=== PATIENT | female | born 1985 | race African-American/Black ===

== ENCOUNTER 2019-12-16 22:23 | Emergency (ER) | payer MEDICAID, SELFPAY ==
--- NOTE | ~2019-12-16 | XR_ITS ---
EXAMINATION: XR chest 2V DATE: 12/16/2019 23:18 INDICATION: Cough TECHNIQUE: PA and lateral views of the chest are obtained. COMPARISON: None available FINDINGS: The lungs are free of acute opacities. There is no pleural effusion or pneumothorax. The ca rdiomediastinal silhouette is normal. The visualized bones and soft tissues are unremarkable. IMPRESSION: 1. No acute cardiopulmonary abnormality. Reviewed, dictated and finalized at location A.
[2019-12-16 22:27] VITALS: BP 137/89; PULSE 96; RESP 20; TEMP 37.2; O2SAT 100
--- NOTE | 2019-12-16 22:52 | ED.GENADULT ---
HPI - General Adult General Chief complaint: Unspecified Stated complaint: choked on roll Time Seen by Provider: 12/16/19 22:52 Source: patient Mode of arrival: ambulatory Limitations: no limitations History of Present Illness HPI narrative: A 34 y/o female presents to the ED with c/o a possible FB in her throat. Pt states she was eating a biscuit this evening and accidentally inhaled a piece of it while she was in the middle of yelling. Pt had the Heimlich maneuver performed on her and a piece of the biscuit came out. Pt was able to breath okay but started to cough up phlegm afterwards. Pt states that she still feels irritation in the back of her throat. She denies chest pressure, SOB, drug use, and smoking. Related Data Allergies Allergy/AdvReac Type Severity Reaction Status Date / Time No Known Allergies Allergy Verified 12/16/19 22:37 Review of Systems Review of Systems: All systems reviewed & are unremarkable except as noted in HPI and below ENT: Comments: Reports: throat irritation Cardiovascular: Comments: Denies: chest pressure Respiratory: Respiratory: Reports cough (with phlegm) and Denies dyspnea PMFSH Surgical History Surgical History (Updated 12/16/19 @ 23:09 by Bridgette Vides) H/O inguinal hernia repair Social History Social History (Updated 12/16/19 @ 23:09 by Bridgette Vides) Smoking status: Never smoker Alcohol intake: current Alcohol use details: occasional Substance use: never Gender identity (if verbalized by the patient): Female 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 HEAD: Normocephalic, atraumatic. ENT: Mucous membranes moist. Normal posterior oropharynx without edema of the uvula or tonsils. CHEST: Clear to auscultation. No respiratory distress. HEART: Regular rate and rhythm. Normal peripheral pulses. EXTREMITIES: Normal range of motion. No edema. SKIN: Warm, dry, no rash. NEURO: Alert and oriented x3. Course Course Emergency Course: Sx improved with viscous lidocaine. D/c Vital Signs Vital signs: Vital Signs Temperature 99 F 12/16/19 22:27 Pulse Rate 96 12/16/19 22:27 Respiratory Rate 20 12/16/19 22:27 Blood Pressure 137/89 12/16/19 22:27 Pulse Oximetry 100 12/16/19 22:27 Temperature 99 F 12/16/19 22:27 Pulse Rate 82 12/16/19 23:40 Respiratory Rate 12 12/16/19 23:40 Blood Pressure 145/114 H 12/16/19 23:40 Pulse Oximetry 100 12/16/19 23:40 Medical Decision Making Vital Signs Vital Signs: Vital Signs Temperature 99 F 12/16/19 22:27 Pulse Rate 96 12/16/19 22:27 Respiratory Rate 20 12/16/19 22:27 Blood Pressure 137/89 12/16/19 22:27 Pulse Oximetry 100 12/16/19 22:27 Temperature 99 F 12/16/19 22:27 Pulse Rate 82 12/16/19 23:40 Respiratory Rate 12 12/16/19 23:40 Blood Pressure 145/114 H 12/16/19 23:40 Pulse Oximetry 100 12/16/19 23:40 Imaging Data Attestation: I personally reviewed and interpreted this imaging study as follows: Radiologist's impression: Chest X-ray: IMPRESSION: 1. No acute cardiopulmonary abnormality. Discharge Plan Discharge Clinical Impression: Pain in throat Patient Disposition: Home, Self-Care Condition: Stable Instructions: Foreign Body Ingestion (ED) Additional Instructions: Return to the ER if you cannot breathe, you cannot swallow, you develop fever over 100.4 ?F, you have additional concerns. Follow-up/Referrals: UNKNOWN,DOCTOR [Primary Care Provider] - 1 Week
--- NOTE | 2019-12-16 23:02 | PC.NURSE ---
assumed care of pt at this time. report from ARNOLD Iverson
[2019-12-16] MEDS: LIDOCAINE HCL 2% VISC SOLN 15 ML UDC PO (23:37)
[2019-12-16 23:40] VITALS: BP 145/114; PULSE 82; RESP 12; O2SAT 100
[2019-12-17 00:10] VITALS: BP 140/98; PULSE 88; RESP 19; O2SAT 97
== END 2019-12-17 00:10 | disposition home or self-care (01) ==
PROVIDERS: Emergency Provider Emergency Medicine
DX: J02.9 Acute pharyngitis, unspecified (principal)
CPT/HCPCS: 71046; 99283

== ENCOUNTER 2023-02-03 19:19 | Emergency (ER) | payer OTHER, SELFPAY ==
--- NOTE | ~2023-02-03 | CT_ITS ---
EXAMINATION: CT abdomen pelvis w con DATE: 02/03/2023 21:24 INDICATION: Abdominal pain. TECHNIQUE: Computed tomography (CT) of the abdomen and pelvis was performed with 100 mL Omnipaque 350 intravenous contrast. Automated exposure control and iterative reconstruction technique were employe d. The dose-length product was 682.88 mGy-cm. COMPARISON: None. FINDINGS: The visualized portions of the lung bases demonstrate mild atelectasis. No pleural effusion . The heart size is normal. No pericardial effusion. The liver, gallbladder, spleen, pancreas, adrena l glands, and left kidney are normal. There is a 7 mm cyst in right kidney. 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 There are 3 uterine fibroids measur ing up to 9.3 cm. There are no dilated loops of bowel. The appendix is normal. There are no pathologi remi enlarged lymph nodes. There is no free intraperitoneal fluid. The bones are unremarkable. IMPRESSION: 1. Uterine fibroids. Reviewed, dictated and finalized at location A. IMPRESSION: 1. Uterine fibroids.
[2023-02-03 19:28] VITALS: BP 139/75; PULSE 115; RESP 16; TEMP 37.3; O2SAT 98
[2023-02-03 19:44] LABS: Basophils Absolute Auto 0.1 K/mm3 (0.0-0.1); Basophils Percent Auto 0.7 % (0.2-1.2); Eosinophils Absolute Auto 0.3 K/mm3 (0-0.3); Eosinophils Percent Auto 2.3 % (0-4.4); Hematocrit 36.6 % (37.0-47.0); Hemoglobin 11.9 g/dL (12.0-15.0); Immature Granulocyte Absolute 0.07 K/mm3 (0.00-0.031); Immature Granulocyte Percent A 0.5 % (0-0.5); Lymphocytes Absolute Auto 2.87 K/mm3 (0.9-3.2); Lymphocytes Percent Auto 21.3 % (18.3-44.2); Mean Corpuscular HGB Conc 32.5 g/dl (32-36); Mean Corpuscular Hemoglobin 26.5 pg (26-34); Mean Corpuscular Volume 81.5 fl (80-100); Monocytes Absolute Auto 1.8 K/mm3 (0.1-0.6); Monocytes Percent Auto 13.1 % (2.6-8.5); Neutrophils Absolute Auto 8.4 K/mm3 (1.3-6.7); Neutrophils Percent Auto 62.1 % (45.5-73.1); Platelet Count Result 690 k/mm3 (150-375); Red Blood Count 4.49 M/mm3 (4.2-5.4); Red Cell Distribution Width 15.1 % (11.5-14.5); White Blood Count 13.5 K/mm3 (4.5-10.0)
[2023-02-03 19:55] LABS: Alanine Aminotransferase 16 U/L (6-35); Alkaline Phosphatase 71 U/L (38-126); Anion Gap 7 mmol/L (8-16); Aspartate Amino Transferase 21 U/L (14-36); Bilirubin,Total 0.4 mg/dL (0.2-1.3); Blood Urea Nitrogen 7 mg/dL (7-17); Calcium 9.2 mg/dL (8.4-10.2); Carbon Dioxide 29 mmol/L (22-30); Chloride 102 mmol/L (98-107); Estimated Glomerular Filt Rate > 60; Glucose 93 mg/dL (65-110); Lipase 51 U/L (23-300); Potassium 4.3 mmol/L (3.4-5.0); Sodium 138 mmol/L (137-145)
[2023-02-03] MEDS: ONDANSETRON INJ 4 MG/2 ML VIAL IV PUSH (20:58)
[2023-02-03] MEDS: MORPHINE SULFATE (*CRX) 4 MG/ML INJ IV PUSH (20:58)
[2023-02-03] MEDS: SODIUM CHLORIDE 0.9% IV 1,000 ML 999 ML IV CONT (20:59)
[2023-02-03 21:06] LABS: Appearance Urine Clear (Clear); Bacteria Urine 1+ /hpf; Bilirubin Urine Negative (Negative); Blood Urine 1+ (Negative); Color Urine Yellow (Yellow); Glucose Urine UA Negative (Negative); Ketones Urine Trace mg/dL (Negative); Leukocyte Esterase Ur Negative LEU/UL (Negative); Nitrate Urine Negative (Negative); Non Pathogenic Casts 0-2; Protein Urine Negative (Negative); RBC Urine 0-2 /hpf (0-2); Specific Grav Ur 1.019 (1.001-1.035); Squamous Epithelial Cell Urine Occasional /hpf (Few); Urobilinogen Urine 0.2 mg/dL (<2.0); WBC Urine 0-5 /hpf; pH Urine 5.5 (5.0-9.0)
[2023-02-03 21:09] LABS: Add Urine Microscopic? YES
--- NOTE | 2023-02-03 21:43 | ED.GENADULT ---
HPI - General Adult General Chief complaint: Abdominal Pain Stated complaint: abdominal pain Time Seen by Provider: 02/03/23 20:28 History of Present Illness HPI narrative: Patient 37-year-old female who presents the emergency department with chief complaint of abdominal pain. The patient reports that she is been having pain for about a week reports its in her lower quadrants of her abdomen the patient reports the pain is not improved by anything nor is it worsened by anything patient denies fever denies diarrhea. Patient denies prior surgical intervention in her abdomen reports her last period was in the last week Related Data Allergies Allergy/AdvReac Type Severity Reaction Status Date / Time No Known Allergies Allergy Verified 12/16/19 22:37 Review of Systems Review of Systems: A 10 system review of systems was completed on the patient and is negative except for what is stated in the HPI. Nursing and ancillary documentation was reviewed. [facility] Surgical History Surgical History H/O inguinal hernia repair Social History Social History Smoking status: Never smoker Alcohol intake: current Alcohol use details: occasional Substance use: never Gender identity (if verbalized by the patient): Female Exam Narrative: GENERAL: Well-appearing, well-nourished, and in no acute distress. HEAD: Normocephalic, atraumatic. EYES: PERRLA and EOMI. ENT: Nares clear, no rhinorrhea or epistaxis. Mucous membranes moist. NECK: Supple. CHEST: Clear to auscultation. No respiratory distress. HEART: Regular rate and rhythm. No murmur heard. Normal peripheral pulses. ABDOMEN: Soft, mild tenderness to palpation, nondistended, normal active bowel sounds. EXTREMITIES: Normal range of motion. No edema. SKIN: Warm, dry, no rash. NEURO: No focal deficits. Alert and oriented x3. PSYCH: Normal mood and affect. Course Vital Signs Vital signs: Vital Signs Temperature 37.3 C 02/03/23 19:28 Pulse Rate 115 H 02/03/23 19:28 Respiratory Rate 16 02/03/23 19:28 Blood Pressure 139/75 02/03/23 19:28 Pulse Oximetry 98 02/03/23 19:28 Oxygen Delivery Room Air 02/03/23 19:28 Temperature 37.3 C 02/03/23 19:28 Pulse Rate 115 H 02/03/23 19:28 Respiratory Rate 16 02/03/23 19:28 Blood Pressure 139/75 02/03/23 19:28 Pulse Oximetry 98 02/03/23 19:28 Oxygen Delivery Room Air 02/03/23 19:28 Medical Decision Making MDM Narrative Medical decision making narrative: Differential diagnosis includes appendicitis, colitis, ovarian cyst, abdominal pain Laboratory studies were obtained which showed a white count of 13.5 electrolytes are within normal limits liver enzymes were within normal limits lipase was normal urinalysis showed no evidence of UTI. CT scan of the abdomen pelvis showed 3 large uterine fibroids and intramuscular lipoma. No evidence of appendicitis no evidence of cholecystitis or colitis present. Vital Signs Vital Signs: Vital Signs Temperature 37.3 C 02/03/23 19:28 Pulse Rate 115 H 02/03/23 19:28 Respiratory Rate 16 02/03/23 19:28 Blood Pressure 139/75 02/03/23 19:28 Pulse Oximetry 98 02/03/23 19:28 Oxygen Delivery Room Air 02/03/23 19:28 Temperature 37.3 C 02/03/23 19:28 Pulse Rate 115 H 02/03/23 19:28 Respiratory Rate 16 02/03/23 19:28 Blood Pressure 139/75 02/03/23 19:28 Pulse Oximetry 98 02/03/23 19:28 Oxygen Delivery Room Air 02/03/23 19:28 Lab Data 02/03/23 19:38 02/03/23 19:38 Labs: Lab Results 02/03/23 02/03/23 Range/Units 19:38 20:57 WBC 13.5 H (4.5-10.0) K/mm3 RBC 4.49 (4.2-5.4) M/mm3 Hgb 11.9 L (12.0-15.0) g/dL Hct 36.6 L (37.0-47.0) % MCV 81.5 (80-100) fl MCH 26.5 (26-34) pg MCHC 32.5 (32-36) g/dl RDW 15.1 H (11.5-14
[2023-02-03 22:27] VITALS: BP 117/83; PULSE 78; RESP 16; O2SAT 98
== END 2023-02-03 22:28 | disposition home or self-care (01) ==
PROVIDERS: Emergency Medicine; Emergency Provider Emergency Medicine; PCP Nurse Practitioner Family
DX: D25.9 Leiomyoma of uterus, unspecified (principal); D17.1 Benign lipomatous neoplasm of skin and subcutaneous tissue of trunk; R10.84 Generalized abdominal pain
CPT/HCPCS: 36415; 74177; 80053; 81001; 81025; 83690; 85025; 96361; 96374; 96375; 99284; J2270; J2405; J7030; Q9967

== ENCOUNTER → 2023-03-08 13:23 | Outpatient (CLI) | payer OTHER, SELFPAY ==
--- NOTE | ~2023-03-08 | US_ITS ---
EXAMINATION: US pelvic complete w TV DATE: 03/08/2023 13:59 INDICATION: Leiomyoma of uterus TECHNIQUE: Multiple transabdominal and endovaginal sonographic images of the pelvis were obtained. COMPARISON: CT, 02/03/2023 FINDINGS: The uterus measures 15.2 x 9.9 x 11.4 cm. The endometrial complex measures 8 mm. There is a n 8.0 x 7.9 cm intramural fibroid of the uterine fundus on the left. A 4.4 cm intramural fibroid is n oted anteriorly in the right aspect of the uterine fundus. The right ovary is not visualized however no right adnexal abnormality is seen. The left ovary measures 3.7 x 3.5 x 5.0 cm. There is normal vas cular flow in the left ovary. There is no free fluid in the pelvis. IMPRESSION: 1. Enlarged fibroid uterus. Reviewed, dictated and finalized at location F. IMPRESSION: 1. Enlarged fibroid uterus.
== END ==
PROVIDERS: PCP Nurse Practitioner Family; Visit Provider Obstetrics & Gynecology
DX: D25.9 Leiomyoma of uterus, unspecified (principal)
CPT/HCPCS: 76830; 76856